=== PATIENT | female | born 1980 | race Two or more races ===

== ENCOUNTER 2019-08-24 20:11 | Emergency (ER) | payer OTHER, SELFPAY ==
[~2019-08-24] VITALS: Ht 165.1 cm; Wt 66.0 kg
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
--- NOTE | 2019-08-24 20:19 | NUR ---
MD AT BEDSIDE TO ASSESS PT
[2019-08-24] MEDS ORDERED: ONDANSETRON 2MG/ML, 2ML ONE (20:23)
--- NOTE | 2019-08-24 20:26 | NUR ---
PT MEDICATED PER MAR
[2019-08-24] MEDS ORDERED: ONDANSETRON 2MG/ML, 2ML IVPush ONE (20:30)
--- NOTE | 2019-08-24 20:44 | NUR ---
[facility] AT BEDSIDE
[2019-08-24 21:04] LABS: BASOPHILS # (AUTO) 0.07 x10^3/uL (0-0.1); BASOPHILS % (AUTO) 1 % (0-1); EOSINOPHILS # (AUTO) 0.49 x10^3/uL (0-0.4); EOSINOPHILS % (AUTO) 5 % (1-7); LYMPHOCYTES % (AUTO) 27 % (22-44); MD NO; MEAN CORPUSCULAR HEMOGLOBIN 31.5 pg (27.0-34.8); MEAN CORPUSCULAR HGB CONC 33.8 g/dL (32.4-35.8); MEAN PLATELET VOLUME 8.1 fL (7.4-10.4); MONOCYTES # (AUTO) 0.56 x10^3/uL (0.2-0.8); MONOCYTES % (AUTO) 6 % (2-9); NEUTROPHILS # (AUTO) 5.92 x10^3/uL (1.8-6.8); NEUTROPHILS % (AUTO) 61 % (42-75); PLATELET COUNT 278 x10^3/uL (130-400); RED BLOOD COUNT 4.68 x10^6/uL (3.82-5.3)
[2019-08-24 21:15] LABS: ALBUMIN 3.7 g/dL (3.4-5.0); ANION GAP 6 mmol/L (5-15); CALCIUM 8.8 mg/dL (8.5-10.1); CHLORIDE 110 mmol/L (98-107); CREATININE 0.93 mg/dL (0.55-1.02)
[2019-08-24 22:25] VITALS: BP 134/86
--- NOTE | 2019-08-24 22:27 | NUR ---
Patient/Caregiver given discharge instructions and they have confirmed that they understand the instructions. Patient ambulatory with steady gait.
== END 2019-08-24 22:28 | disposition home or self-care (01) ==
LOC: ED 22:00
DX: G89.11 Acute pain due to trauma (principal); M54.2 Cervicalgia; M25.562 Pain in left knee; M25.512 Pain in left shoulder; I10 Essential (primary) hypertension; V49.49XA Driver injured in collision with other motor vehicles in traffic accident, initial encounter; Y93.89 Activity, other specified; Y92.488 Other paved roadways as the place of occurrence of the external cause; Y99.8 Other external cause status
CPT/HCPCS: 36415; 71046; 72125; 73030; 73564; 80048; 82040; 84703; 85025; 96374; 99285; J2405